=== PATIENT | female | born 1995 | race Caucasian/White ===

== ENCOUNTER 2017-07-22 12:05 | Inpatient (IN) | payer SELFPAY ==
[2017-07-22 11:55] VITALS: BMI 32.0
[2017-07-22] MEDS: 0.9% Saline Lock 10 ML Syringe IV (12:00)
[2017-07-22 12:09] VITALS: BP 175/101; PULSE 48
[2017-07-22] MEDS: Betamethasone/Betamethasone 30 MG/5 ML Vial 12 MG IM (12:15)
[2017-07-22] MEDS: Lactated Ringers 1,000 ML 50 ML IV (12:15)
[2017-07-22 12:16] LABS: Absolute Lymphocyte Count 2.25 X10^3/ul (0.83-4.51); Absolute Neutrophil Count 7.4 X10^3/uL (2.0-7.7); Basophil# 0.01 X10^3/uL; Basophil% 0.1 % (0-1); Hematocrit 34.5 % (37-47); Hemoglobin 11.8 g/dl (12.0-15.0); Lymphocyte # 2.25 X10^3/ul (4.0); Lymphocyte % 21.7 % (19-41); Mean Corp Hgb Conc 34.2 g/gl (32-36); Mean Corpuscular Hgb 31.3 pg (27.0-32.0); Mean Corpuscular Volume 91.5 fL (81-99); Mean Platelet Vol. 11.7 fl (6.2-12.0); Monocyte# 0.64 X10^3/uL; Monocyte% 6.2 % (0-10); Neutrophil # 7.36 X10^3/uL (2.7-7.7); Neutrophil % 70.8 % (47-70); POSITIVE COUNT NO; POSITIVE DIFFERENTIAL NO; POSITIVE MORPHOLOGY NO; Platelet Count 152 K/mm3 (150-450); RBC Distribution Width CV 14.5 % (11.6-14.6); RBC Distribution Width SD 48.3 fl (35.1-43.9); Red Blood Count 3.77 M/mm3 (4.2-5.4); White Blood Count 10.4 K/mm3 (4.4-11.0)
[2017-07-22 12:24] LABS: Prothrombin Time (Protime)PT. 12.7 SECONDS (11.7-14.9)
[2017-07-22 12:29] LABS: AST(SGOT) 39 U/L (15-37); Alanine Aminotransfer ALT/SGPT 29 U/L (13-56); Creatinine, Serum 0.61 mg/dL (0.55-1.02); EST Glomerular Filtration Rate 127 mL/min (>60); Est Glom Filt Rate - Afr Amer 154 mL/min (>60); Estimated Creatinine Clearance 112.47 ml/min; Uric Acid 8.1 mg/dL (2.6-6.0)
[2017-07-22 12:45] VITALS: BP 160/78; PULSE 78
[2017-07-22] MEDS: Magnesium Sulfate 20 GM/500 ML BAG IV (13:23)
[2017-07-22 14:11] VITALS: BP 150/79; PULSE 106
[2017-07-22 14:16] LABS: Platelet Count 152 K/mm3 (150-450)
[2017-07-22 14:18] LABS: Protein, Urine (Random) 1134.7 mg/dL (<11.9); Protein:Creat Ratio 8728 mg/g CRE (0-200)
[2017-07-22 14:19] VITALS: BP 138/78; PULSE 116; RESP 18; O2SAT 98
[2017-07-22 14:25] LABS: HIV - WCH Non-Reactive (Nonreactive)
[2017-07-22 14:27] LABS: AST(SGOT) 54 U/L (15-37); Alanine Aminotransfer ALT/SGPT 41 U/L (13-56)
[2017-07-22 14:28] LABS: Amphetamine Urine VISTA NEGATIVE (<1000 ng/mL); Barbiturate Urine VISTA NEGATIVE (< 200 ng/mL); Benzodiazepine Urine VISTA NEGATIVE (< 200 ng/mL); Cocaine Urine VISTA NEGATIVE (< 300 ng/mL); Ecstacy Urine VISTA NEGATIVE (< 500 ng/mL); Methadone Urine VISTA NEGATIVE (< 300 ng/mL); PCP Urine VISTA NEGATIVE (< 25 ng/mL); THC Urine VISTA NEGATIVE (< 50 ng/mL); Vista UDS pH Range 5
[2017-07-22 15:49] LABS: Chlamydia Trachomatis by PCR Negative (Negative); Group B Strep DNA By PCR Negative (Negative); Internal Control PASS; Neisserai gonorrhoeae by PCR Negative (Negative); Probe Check PASS; Sample Adequacy Control PASS; Specimen Processing Control PASS
[2017-07-23 12:43] LABS: HEPATITIS B SURFACE AG Negative (Negative); Hep C Antibodies <0.1 s/co ratio (0.0-0.9)
--- NOTE | 2017-07-23 22:30 | OB.TRI.NOTE ---
History of Present Illness Date of Service: 07/22/17 Was patient seen by the physician?: Yes Reason For Visit: LABOR Date of Service: 07/22/17 Gestational age: 35w4d History of Present Illness: 22 yo @ 35w4d presents with elevated bps, swelling, and proteinuria. 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 she denies any headache. 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 Physical Exam Vitals: Vital Signs Pulse Resp BP Pulse Ox 116 H 18 138/78 H 98 07/22/17 14:19 07/22/17 14:19 07/22/17 14:19 07/22/17 14:19 General: Alert Cardiovascular: Regular rate Lungs: Normal air movement Abdomen: Soft, Non Tender, Gravid, - - normal neuro exam no clonus, reflexes 2+ Extremities:: Other - edema 2 plus Estimated gestational size: Appropriate for gestational size Presentation: Cephalic Cervix Dilation (cm): 3 Station: -3 Effacement (%): 50 NST - FHR Rate Baby A Baseline: 140 Variability:: Moderate Accelerations:: 15 x 15 Decelerations:: None NST Reactive:: Yes FHR Category:: Category I Uterine Activity:: irregular ctx Impression/Plan 22 yo @ 35w4d with preeclampsia 1. serial bloodwork suspicious for hellp syndrome- transport to [facility] for delivery 2. counseled regading risk of recurrence and she will need follow up after delivery for this. magnesium started, BMZ given, hydralazine given.
--- NOTE | 2017-07-23 22:35 | OB.TRI.HP_ITS ---
History of Present Illness Date of Service: 07/22/17 Was patient seen by the physician?: Yes Reason For Visit: LABOR Date of Service: 07/22/17 Gestational age: 35w4d History of Present Illness: 22 yo @ 35w4d presents with elevated bps, swelling, and proteinuria. 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 she denies any headache. 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 Physical Exam Vitals: Vital Signs Pulse Resp BP Pulse Ox 116 H 18 138/78 H 98 07/22/17 14:19 07/22/17 14:19 07/22/17 14:19 07/22/17 14:19 General: Alert Cardiovascular: Regular rate Lungs: Normal air movement Abdomen: Soft, Non Tender, Gravid, - - normal neuro exam no clonus, reflexes 2+ Extremities:: Other - edema 2 plus Estimated gestational size: Appropriate for gestational size Presentation: Cephalic Cervix Dilation (cm): 3 Station: -3 Effacement (%): 50 NST - FHR Rate Baby A Baseline: 140 Variability:: Moderate Accelerations:: 15 x 15 Decelerations:: None NST Reactive:: Yes FHR Category:: Category I Uterine Activity:: irregular ctx Impression/Plan 22 yo @ 35w4d with preeclampsia 1. serial bloodwork suspicious for hellp syndrome- transport to [facility] for delivery 2. counseled regading risk of recurrence and she will need follow up after delivery for this. magnesium started, BMZ given, hydralazine given.
[2017-07-24 02:34] LABS: Rapid Plasmin Reagin (RPR) NONREACTIVE (NONREACTIVE)
== END 2017-07-22 16:10 | disposition short-term general hospital (02) | DRG 781 ==
LOC: WPOUT 12:09
PROVIDERS: Admitting Provider Obstetrics & Gynecology; Visit Provider Obstetrics & Gynecology
DX: O14.93 Unspecified pre-eclampsia, third trimester (principal); Z3A.35 35 weeks gestation of pregnancy
CPT/HCPCS: 36415; 59050; 80307; 82565; 82570; 84156; 84450; 84460; 84550; 85025; 85049; 85610; 85730; 86592; 86703; 86762; 86803; 86850; 86900; 87081; 87340; 87491; 87591; 87653; J7120; A4216; J0702